=== PATIENT | male | born 1975 | race African-American/Black ===

== ENCOUNTER → 2020-08-12 | Outpatient (CLI) | payer MEDICAID ==
[2020-08-12 17:48] LABS: BASO # 0.04 (0.02-0.10); EOS # 0.06 (0.04-0.40); EOS % 0.8 % (0.0-4.0); HEMATOCRIT 47.3 % (42.0-52.0); HEMOGLOBIN 16.9 g/dL (13.5-18.0); LYMPH# 2.04 (1.50-4.00); MEAN CELL VOLUME 89 fl (78-100); MEAN CORPUSCULAR HEMOGLOBIN 32 pg (27-31); MEAN CORPUSCULAR HGB CONC 36 g/dL (33-37); MEAN PLATELET VOLUME 12.7 fl (7.4-10.4); MONO # 0.41 (0.20-0.80); NEU # 4.63 (1.40-6.50); PLATELET COUNT 192 K/mm3 (130-400); RED BLOOD COUNT 5.34 M/mm3 (4.20-5.60); RED CELL DISTRIBUTION WIDTH 11.4 % (11.5-14.5); WHITE BLOOD COUNT 7.2 K/mm3 (4.8-10.8)
[2020-08-12 17:59] LABS: ALBUMIN 4.2 g/dL (3.5-5.0); POTASSIUM 4.3 mmol/L (3.5-5.1); SODIUM 130 mmol/L (136-145)
[2020-08-12 18:00] LABS: CALCIUM 9.4 mg/dL (8.3-10.5)
[2020-08-12 18:01] LABS: TOTAL PROTEIN 7.8 g/dL (6.4-8.3)
[2020-08-12 18:02] LABS: CARBON DIOXIDE 19 mmol/L (22-29)
[2020-08-12 18:03] LABS: TOTAL BILIRUBIN 0.6 mg/dL (0.2-1.2)
[2020-08-12 18:07] LABS: AST-SGOT 13 U/L (5-34)
[2020-08-12 18:08] LABS: ALT/SGPT 23 U/L (0-55)
[2020-08-12 18:22] LABS: D-DIMER 0.25 mg/L FEU (0.15-0.50)
[2020-08-12 18:49] LABS: GLUCOSE 571 mg/dL (75-110); TROPONIN-I < 0.03 ng/mL (<0.030)
[2020-08-12 20:06] LABS: URINE APPEARANCE CLEAR; URINE COLOR YELLOW
[2020-08-12 20:07] LABS: URINE BILIRUBIN NEGATIVE (NEGATIVE); URINE BLOOD NEGATIVE (NEGATIVE); URINE KETONE NEGATIVE (NEGATIVE); URINE LEUKOCYTE ESTERASE NEGATIVE (NEGATIVE); URINE NITRATE NEGATIVE (NEGATIVE); URINE PROTEIN(semi-quant) NEGATIVE (NEGATIVE); URINE UROBILINOGEN NORMAL (NORMAL); URINE WBC 0-1 /hpf (0-3)
== END ==
LOC: LAB 17:29
PROVIDERS: Family Medicine
DX: E11.42 Type 2 diabetes mellitus with diabetic polyneuropathy (principal); R53.1 Weakness; Z79.4 Long term (current) use of insulin